=== PATIENT | female | born 1955 | race Caucasian/White ===

== ENCOUNTER 2017-02-17 08:26 | Day surgery (SDC) | payer BC ==
[2017-02-16 11:46] VITALS: BMI 28.1
[~2017-02-17 08:26] MED LIST: LACTATED RINGERS 1,000 ML IV SCH
[2017-02-17 08:38] VITALS: RESP 16; TEMP 97.6
[2017-02-17] MEDS ORDERED: LIDOCAINE 1% 20 ML VIAL (10MG/ML) FOR IV START INTRADERMA ONE (08:50)
[2017-02-17] MEDS ORDERED: PROPOFOL 10 MG/ML 20 ML VIAL IV ONE (09:20)
--- NOTE | 2017-02-17 10:00 | P.PCN ---
Date of Procedure: 02/17/17 Preoperative Diagnosis: Postoperative Diagnosis: Procedure(s) Performed: BRIEF HISTORY: Patient is a 61-year-old pleasant white female scheduled for an elective colonoscopy as a part of screening for colorectal neoplasia. PROCEDURE PERFORMED: Colonoscopy with snare polypectomy . PREOPERATIVE DIAGNOSIS: screening for colon cancer IV sedation per Anesthesia. PROCEDURE: After informed consent was obtained, the patient, was brought into the endoscopy unit. IV sedation was administered by Anesthesia under continuous monitoring. Digital rectal examination was normal. Initially the Olympus CF- 160 flexible video colonoscope was then inserted in the rectum, gradually advanced into the cecum without any difficulty. Careful examination was performed as the scope was gradually being withdrawn. Ileocecal valve and the appendiceal orifice were visualized and appeared normal. Prep was fair.Mucosa of the cecum, ascending colon, transverse colon, descending colon, sigmoid coappeared normal. In the rectum; there was a 1 cm polyp removed by snare polypectomy. The rectum appeared normal. Retroflexion was performed in the rectum and no lesions were seen. The patient tolerated the procedure well. IMPRESSION: 1 cm rectal sigmoid polyp serous was snare polypectomy Rest of the colon appeared normal RECOMMENDATIONS: Findings of this examination were discussed with the patient as well as her family. She was advised to follow with the biopsy results. If the biopsy shows a tubular adenoma she can have a repeat colonoscopy in 5 years. Implants: Indications for Procedure: Operative Findings: Description of Procedure:
[2017-02-17 10:05] VITALS: BP 126/76; PULSE 52
== END 2017-02-17 10:34 | disposition home or self-care (01) ==
LOC: ORWHC2ENDO 08:26
PROVIDERS: ATTEND Internal Medicine Gastroenterology
DX: Z12.11 Encounter for screening for malignant neoplasm of colon (principal); K62.1 Rectal polyp; Z79.899 Other long term (current) drug therapy
CPT/HCPCS: 88305; 45385; J2704

== ENCOUNTER → 2017-02-28 | Outpatient (CLI) | payer BC ==
--- NOTE | 2017-03-01 07:25 | MM ---
Reason for exam: additional evaluation requested from prior study. Last mammogram was performed 1 year and 6 months ago. History: Patient is postmenopausal and is nulliparous. Implants in both breasts, 1991. Took hormonal contraceptives for 5 years beginning at age 32. Took estrogen for 4 years beginning at age 53. Took progesterone for 4 years beginning at age 53. Physical Findings: Nurse did not find any significant physical abnormalities on exam. MG Diag Mamm Implants AWAIS w CAD Bilateral CC, MLO, and ID view(s) were taken. Prior study comparison: August 18, 2015, bilateral MG 3d screen mammo imp/cad. August 11, 2014, bilateral MG diagnostic mammo w CAD AWAIS. There are scattered fibroglandular densities. There is increasing extracapsular silicone on the right breast. These results were verbally communicated with the patient and result sheet given to the patient on 02/28/17. ASSESSMENT: Benign, BI-RAD 2 RECOMMENDATION: Routine screening mammogram of both breasts in 1 year. Extracapsular implant rupture right breast.
--- NOTE | 2017-03-01 10:29 | WWHP ---
DATE OF SERVICE: 02/28/2017 CHIEF COMPLAINT: Patient is here for her routine gynecologic exam and mammogram. HPI: This is a 61-year-old G1, P0-0-1-0 with a LMP of 1998. The patient continues to have some vulvar pruritus. She was treated with Kenalog cream, which did seem to help, but did not make the pruritus completely go away. Her prescription ran out several months ago and she again has been having moderate pruritus and, at times it can be severe. The patient denies any vaginal discharge. She was started on an antibiotic prescribed by a different doctor for the vulvar pruritus and this briefly seemed to help, but was not lasting. She also try Diflucan, which again briefly seemed to help but did not last. She is otherwise without gynecologic complaints. PAST MEDICAL HISTORY: Osteoporosis and she is status post 4 years use of Boniva. She denies any other health problems. MEDICATIONS: 1. Multivitamin daily. 2. Vitamin D 2000 units daily. 3. Calcium supplement 1 daily. ALLERGIES: No known drug allergies. PAST SURGICAL HISTORY: Facelift surgery in 2012, bilateral silicone breast implants in approximately 1991, colonoscopy 2006 and January 2017, arthroscopic right knee surgery in 2016. 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 She has no history of STDs. SOCIAL HISTORY: She denies tobacco and drug use. She has about 5 to 6 alcoholic drinks per month. 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 FAMILY HISTORY: Unchanged from the 2015 H&P. REVIEW OF SYSTEMS: She has lost about 14 pounds over the last 1 to 2 years ago with diet and exercise. She denies respiratory, cardiac, or GI problems. PHYSICAL EXAM: Blood pressure 123/80. Height 5 feet 5-1/2 inches. Weight 175 pounds. Temperature 97.6, pulse 59. This a well-developed, well-nourished white female who is alert and oriented x3 in no acute distress. HEENT is within normal limits. NECK: Supple without mass or thyromegaly. CHEST AND LUNGS: Clear to auscultation. HEART: Regular rate and rhythm. BREASTS: Without mass or discharge. Axillary exam is negative for adenopathy. BACK: Negative for CVA tenderness. ABDOMEN: Soft, nontender, without palpable masses. PELVIC EXAM: External genitalia reveals mild atrophy. There is minimal erythema in the periclitorial area and the crease between the labia minora and labia majora in the anterior aspect of the introitus. There is no significant pallor. There are no other focal lesions. Cervix and vagina appear normal. There is no unusual discharge. There is minimal atrophy noted. There is no evidence of prolapse. The uterus is midposition, nongravid size and nontender. There are no palpable adnexal masses or tenderness. Rectovaginal exam Almeida for mass or tenderness and is negative for occult blood. EXTREMITIES: Nontender. IMPRESSION: 1. A 61-year-old with chronic vulvar pruritus with mild inflammation at the anterior aspect of the introitus and periclitoral areas. 2. Differential diagnosis will include chronic inflammation as well as lichen sclerosus. 3. History of osteoporosis status post 4 years of Boniva treatment. PLAN: 1. Pap smear was deferred, since her last one was normal in 2 years. 2. Self-breast examination was discussed. 3. Diagnostic bilateral mammogram will be done today. 4. Kenalog 0.1% cream b.i.d. to the vulvar area, she will use this every day for the next 2 weeks and then p.r.n. She will also use a small amount of petroleum jelly once daily to be used as a protective layer. 5. If by next month she is not having significant improvement, she was instructed to make an appointment here for a vulvar biopsy. 6. We will plan on repeating bone density testing next year. 7. She will return in one year and p.r.n. MTDD
== END | disposition home or self-care (01) ==
LOC: WWCWWP 13:48
PROVIDERS: ATTEND Obstetrics & Gynecology
DX: R92.8 Other abnormal and inconclusive findings on diagnostic imaging of breast (principal)

== ENCOUNTER → 2019-01-01 | Outpatient (CLI) | payer BC ==
[2019-01-01 15:53] VITALS: BP 140/79; PULSE 61; RESP 18; TEMP 96.1; BMI 31.6
--- NOTE | 2019-01-01 17:21 | P.HPOB ---
History of Present Illness H&P Date: 01/01/19 Chief Complaint: The patient is here for her routine gynecologic exam. This is a 63-year-old with an LMP of 1998. The patient is without gynecologic complaints and denies any postmenopausal bleeding. Review of Systems The patient has gained 15 pounds over the last 2 years. She denies respiratory or cardiac problems. G.I.: occasional heartburn. Past Medical History Additional Past Medical History / Comment(s): Osteoporosis status post 4 years use of Boniva. PAST MEDICAL INTERN HISTORY: She has no history of STDs. History of Any Multi-Drug Resistant Organisms: None Reported Past Surgical History: Breast Surgery, Orthopedic Surgery Additional Past Surgical History / Comment(s): arthroscopic rt knee. Cosmetic facial surgery. Bilateral silicone breast implants 1991 and they were replaced in 2018. Colonoscopy 2017(2nd). 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 - Past Family History Mother Family Medical History: Hypertension, Myocardial Infarction ([place]) Father Family Medical History: Coronary Artery Disease (CAD) Additional Family Medical History / Comment(s): Aortic aneurysm. Sister(s) Additional Family Medical History / Comment(s): Dermatomyositis. Medications and Allergies Home Medications Medication Instructions Recorded Confirmed Type No Known Home Medications 01/01/19 01/01/19 History Allergies Allergy/AdvReac Type Severity Reaction Status Date / Time No Known Allergies Allergy Verified 01/01/19 15:38 Exam Vital Signs Temp Pulse Resp BP Pulse Ox 01/01/19 15:50 96.1 F L 61 18 140/79 100 Intake and Output 01/01/19 01/01/19 01/01/19 06:59 14:59 22:59 Other: Weight 86.183 kg Height 5'5", weight 190 pounds, BMI 31.6. This is a well-developed well-nourished white female who is alert and oriented times 3 in no acute distress. HEENT: Within normal limits. NECK: Supple without mass or thyromegaly. CHEST AND LUNGS: Clear to auscultation. HEART: Regular rate and rhythm. BREASTS: Are without mass or discharge. The breasts are consistent with bilateral silicone implants. AXILLARY EXAM: Negative for adenopathy. BACK: Negative for CVA tenderness. ABDOMEN: Soft, nontender, without palpable masses. PELVIC EXAM: There is a slightly irregular mole on the right side of the mons pubis that measures 9 x 9 mm. The mole is brown and slightly raised. The patient states this is grown recently. The external genitalia is otherwise unremarkable with mild atrophy. Cervix and vagina appear normal mild atrophy. There is no unusual discharge. There is no evidence of prolapse. The uterus is midposition, nongravid size and nontender. There are no palpable adnexal masses or tenderness. RECTAL EXAM: rectovaginal exam is negative for mass or tenderness and is negative for occult blood. EXTREMITIES: Nontender. IMPRESSION: 1. 63-year-old menopausal female with the right mons pubis skin lesion approximately 9 x 9 mm which is growing, per the patient, and slightly irregular. 2. Otherwise unremarkable gynecologic exam. 3. History of osteopenia or osteoporosis status post 4 years use of Boniva PLAN: 1. Pap smear was performed. 2. Self breast awareness was discussed with the patient. 3. Screening mammogram was recommended. She was told by her plastic surgeon to delay this after her breast implants. She will contact her plastic surgeon to see if it is okay to proceed with screening mammograms. The order slip was given to the patient for this. 4. Osteoporosis prevention was discussed. I have stressed the importance of adequate calcium, vitamin D and regular exercise. Recommended amounts of calcium and vitamin D were also discussed. I have recommended bone density screening since it is been several years since her last one. 5. I've recommended removal of the mons pubis skin lesion since it seems to be growing, according to the patient, and is somewhat irregular. She is instructed to make an appointment for its removal. We will plan on sending it for pathological examination. 6.She was also advised to return in one year for her annual well woman exam.
--- NOTE | 2019-01-08 14:05 | P.PN ---
Progress Note - Text Progress Note Date: 01/08/19 OUTPATIENT FOLLOW-UP NOTE TEST(S)/RESULTS: Pap smear done on 01/01/2019 was negative. METHOD OF NOTIFICATION: the patient was notified by phone. PATIENT COMMENTS: the patient states you will be making an appointment for mammogram and for removal of the mons pubis skin lesion in the near future. DIAGNOSIS: negative Pap smear DISCUSSION: PLAN: she will return in one year for her annual woman exam and in the near future for the removal of the growing mole on the mons pubis.
== END | disposition home or self-care (01) ==
LOC: WWCWWP 15:37
PROVIDERS: ATTEND Obstetrics & Gynecology
DX: Z53.9 Procedure and treatment not carried out, unspecified reason (principal)

== ENCOUNTER → 2019-03-26 | Outpatient (CLI) | payer BC ==
[2019-03-26 08:03] VITALS: BP 129/75; PULSE 69; RESP 16; TEMP 98.5; BMI 32.1
--- NOTE | 2019-03-26 08:48 | P.PCN ---
Date of Procedure: 03/26/19 Preoperative Diagnosis: Suspicious skin lesion, Right mons pubis Postoperative Diagnosis: Suspicious skin lesion, Right mons pubis Procedure(s) Performed: Excision of right mons pubis skin lesion Anesthesia: local Surgeon: Boogie Elizabeth Estimated Blood Loss (ml): 2 Pathology: other (Right mons pubis skin lesion) Condition: stable Disposition: same day Indications for Procedure: This was a 64-year-old female who has had a raised pigmented skin lesion for a number of years. She states that it has grown over the past couple of years. Upon inspection it has a slightly irregular border that makes it somewhat suspicious in appearance. Operative Findings: On the right mons pubis, there is a raised pigmented lesion with a slightly irregular border measuring approximately 11 x 10 mm. Description of Procedure: The patient was placed in the lithotomy position allowing adequate exposure of the lesion. The area was prepped with Betadine. 2 mL of 1% lidocaine was used for local anesthesia. Following determination of adequate anesthesia a 15 blade was used to excise the lesion. This was a full thickness excision. A silver nitrate stick was used to obtain hemostasis in the subcutaneous tissue. Three interrupted sutures of 3-0 vicryl was used to close the excision site. The site was hemostatic. Antibiotic ointment was applied and dressing was then applied. The patient tolerated the procedure well. The specimen was sent for pathological examination. The estimate of blood loss was 2 mL. The patient was instructed to apply Neosporin ointment twice daily until healed. She was instructed to call if she has any problems including bleeding that is not stopped with pressure, signs of infection such as increasing redness, or unusual pain. She is to return in 2 weeks for suture removal, or allow them to dissolve under the surface.
--- NOTE | 2019-03-26 10:43 | BD ---
EXAMINATION TYPE: Axial Bone Density DATE OF EXAM: 03/26/2019 COMPARISON: NONE CLINICAL HISTORY: post menopausal Height: 5'5 Weight: 191 FRAX RISK QUESTIONS: Secondary Osteoporosis: RISK FACTORS HISTORY OF: Family History of Osteoporosis: y Postmenopausal woman: y MEDICATIONS: Additional Medications: Additional History: EXAM MEASUREMENTS: Bone mineral densitometry was performed using the [employer] System. Bone mineral density as measured about the Lumbar spine is: ----- L1-L4(G/cm2): 0.944 T Score Values are as follows: ----- L2: -3.0 ----- L3: -2.0 ----- L4: -0.9 ----- L1-L4: -2.0 Bone mineral density about the R hip (g/cm2): 0.855 Bone mineral density about the L hip (g/cm2): 0.821 T Score values are as follows: -----R Neck: -1.3 -----L Neck: -1.6 -----R Total: -0.7 -----L Total: -0.5 IMPRESSION: Osteopenia (T Score between -2.5 and -1). There is slightly increased risk of fracture and the patient may be considered for treatment. Re-Screen 2-5 years. NOTE: T-SCORE=SD OF THE YOUNG ADULT MEAN.
--- NOTE | 2019-03-27 10:08 | MM ---
Reason for exam: screening (asymptomatic). Last mammogram was performed 2 years and 1 month ago. History: Patient is postmenopausal and is nulliparous. Implants in both breasts, 2018. Implants in both breasts, 1991. Took hormonal contraceptives for 5 years beginning at age 32. Took estrogen for 4 years beginning at age 53. Took progesterone for 4 years beginning at age 53. Physical Findings: A clinical breast exam by your physician is recommended on an annual basis and results should be correlated with mammographic findings. MG 3D Screen Mammo Imp/Cad Bilateral CC, MLO, and ID view(s) were taken. Prior study comparison: February 28, 2017, bilateral MG diag mamm implants AWAIS w CAD. August 18, 2015, bilateral MG 3d screen mammo imp/cad. The breast tissue is heterogeneously dense. This may lower the sensitivity of mammography. There is no discrete abnormality. Stable implants. No significant changes when compared with prior studies. ASSESSMENT: Benign, BI-RAD 2 RECOMMENDATION: Routine screening mammogram of both breasts in 1 year.
== END ==
LOC: WWCWWP 07:44
PROVIDERS: ATTEND Obstetrics & Gynecology
DX: Z12.31 Encounter for screening mammogram for malignant neoplasm of breast (principal); M85.80 Other specified disorders of bone density and structure, unspecified site; Z78.0 Asymptomatic menopausal state; Z98.82 Breast implant status
CPT/HCPCS: 77063; 77067; 77080; 88305

== ENCOUNTER 2019-10-11 11:31 | Day surgery (SDC) | payer BC ==
[2019-10-10 13:17] VITALS: BMI 30.9
[~2019-10-11 11:31] MED LIST changes: +LIDOCAINE 1% 20 ML VIAL (10MG/ML) FOR IV START INTRADERMA PRN
[2019-10-11 12:04] VITALS: TEMP 98.2
[2019-10-11] MEDS ORDERED: PROPOFOL 10 MG/ML 20 ML VIAL IV ONE (13:27)
[2019-10-11] MEDS ORDERED: LIDOCAINE 1% INJ 10MG/ML (20 ML MDV) ONE (13:27)
--- NOTE | 2019-10-11 13:37 | P.PCN ---
Date of Procedure: 10/11/19 Procedure(s) Performed: BRIEF HISTORY: Patient is a 64-year-old, pleasant, , white female, scheduled for an upper endoscopy as a part of evaluation of long-standing history of GERD. Recently she was started on Pepcid 20 mg twice daily and symptoms are gradually improving.. PROCEDURE PERFORMED: Esophagogastroduodenoscopy with biopsy. PREOPERATIVE DIAGNOSIS: GERD. IV sedation per anesthesia. PROCEDURE: After informed consent was obtained, the patient was brought into the endoscopy unit. IV sedation was administered by Anesthesia under continuous monitoring. Initially the Olympus GIF-140 video endoscope was inserted into the mouth. Esophagus intubated without any difficulty. It was gradually advanced into the stomach and duodenum and carefully examined. The bulb and the second part of the duodenum appeared normal. The scope at this time was withdrawn to the stomach, adequately insufflated with air, and upon careful examination, mucosa of the antrum, had mild gastritis and biopsies were done from this area. The body, cardia and the fundus appeared normal. The scope was then withdrawn i nto the esophagus. The GE junction was located at 39 cm from the incisors. There were 2 superficial erosions at the GE junction consistent with LA grade B reflux esophagitis. The rest of the esophagus appeared normal. The patient tolerated the procedure well. IMPRESSION: 1. Minimal antral gastritis. 2. 2 superficial erosions at the GE junction consistent with LA grade B reflux esophagitis. RECOMMENDATIONS: The findings of this examination were discussed with the patient as well as a family. She was advised to continue with Pepcid 20 mg twice daily and follow antireflux measures. She was also advised to follow with the biopsy results.
[2019-10-11 13:44] VITALS: RESP 16
[2019-10-11 13:59] VITALS: BP 137/90; PULSE 62
== END 2019-10-11 14:12 | disposition home or self-care (01) ==
LOC: ORWHC2ENDO 11:31 → MERGE 15:00
PROVIDERS: ATTEND Internal Medicine Gastroenterology
DX: K29.50 Unspecified chronic gastritis without bleeding (principal); K22.10 Ulcer of esophagus without bleeding; K21.0 Gastro-esophageal reflux disease with esophagitis; E78.5 Hyperlipidemia, unspecified; M81.0 Age-related osteoporosis without current pathological fracture; Z79.899 Other long term (current) drug therapy; Z98.890 Other specified postprocedural states
CPT/HCPCS: 88305; 43239; J2001; J2704

== ENCOUNTER → 2020-07-21 | Outpatient (CLI) | payer BC ==
[2020-07-21 12:53] VITALS: BP 134/85; PULSE 66; RESP 18; TEMP 98.2
--- NOTE | 2020-07-21 13:27 | P.HPOB ---
History of Present Illness H&P Date: 07/21/20 Chief Complaint: The patient is here for her routine gynecologic exam and ma mmogram. This is a 65-year-old with an LMP of 1998. The patient is without gynecologic complaints. Review of Systems The patient's weight has been stable over the last year. She denies respiratory, cardiac, or G.I. problems. Past Medical History Past Medical History: No Reported History, GERD/Reflux, Hyperlipidemia Additional Past Medical History / Comment(s): Osteoporosis status post 4 years use of Boniva DC'd approx 2015. PAST VP PUBLIC RELATIONS HISTORY: She has no history of STDs. History of Any Multi-Drug Resistant Organisms: None Reported Past Surgical History: Breast Surgery, Orthopedic Surgery Additional Past Surgical History / Comment(s): arthroscopic rt knee. Cosmetic facial surgery. Bilateral silicone breast implants 1991 and they were replaced in 2017. Colonoscopy 2016(next after 5yr).Upper endoscopy(EGD) 2019. rt achilles tendon repair Past Anesthesia/Blood Transfusion Reactions: No Reported Reaction Past Psychological History: No Psychological Hx Reported Smoking Status: Never smoker Past Alcohol Use History: Occasional Past Drug Use History: None Reported - Past Family History Mother Family Medical History: Hypertension, Myocardial Infarction ([place]) Father Family Medical History: Coronary Artery Disease (CAD) Additional Family Medical History / Comment(s): Aortic aneurysm. Sister(s) Family Medical History: AFIB Additional Family Medical History / Comment(s): Dermatomyositis. Medications and Allergies Home Medications Medication Instructions Recorded Confirmed Type Cholecalciferol [Vitamin D3 (25 2,000 unit PO DAILY 10/10/19 07/21/20 History Mcg = 1000 Iu)] Lipitor (Unkn.Dose) 80 mg PO DAILY 10/10/19 07/21/20 History Omeprazole 20 mg PO DAILY 07/21/20 07/21/20 History Zinc 50 mg PO DAILY 07/21/20 07/21/20 History Allergies Allergy/AdvReac Type Severity Reaction Status Date / Time No Known Allergies Allergy Verified 07/21/20 12:47 Exam Vital Signs Temp Pulse Resp BP Pulse Ox 07/21/20 12:49 98.2 F 66 18 134/85 97 Intake and Output 07/20/20 07/21/20 07/21/20 22:59 06:59 14:59 Other: Weight 87.09 kg Height 5 feet 4 inches, weight 192 pounds, BMI 33.0. This is a well-developed well-nourished white female who is alert and oriented times 3 in no acute distress. HEENT: Within normal limits. NECK: Supple without mass or thyromegaly. CHEST AND LUNGS: Clear to auscultation. HEART: Regular rate and rhythm. BREASTS: Are without mass or discharge. Exam is consistent with bilateral implants. AXILLARY EXAM: Negative for adenopathy. BACK: Negative for CVA tenderness. ABDOMEN: Soft, nontender, without palpable masses. PELVIC EXAM: Normal external genitalia with mild atrophy. The mons pubis is within normal limits and the site of the removal of seborrheic keratosis on the right side is well-healed. Cervix and vagina appear normal with mild atrophy. There is no unusual discharge. There is no evidence of prolapse. The uterus is midposition, nongravid size and nontender. There are no palpable adnexal masses or tenderness. RECTAL EXAM: Rectovaginal exam is negative for mass or tenderness and is negative for occult blood. EXTREMITIES: Nontender. IMPRESSION: 1. 65-year-old menopausal female with normal gynecologic exam. 2. History of osteoporosis status post 4 years use of Boniva ending in approximately 2016. PLAN: 1. Pap smear was deferred since she had a normal one on 01/01/2019. 2. Self breast awareness was discussed with the patient. 3. Screening mammogram will be done today. 4. Osteoporosis management was discussed. I have stressed the importance of adequate calcium, vitamin D and regular exercise. Recommended amounts of calcium and vitamin D were also discussed. We will plan on repeating bone density testing in 1-2 years. 5. She was advised to return in one year for her annual well woman exam.
--- NOTE | 2020-07-23 12:09 | MM ---
Reason for exam: screening (asymptomatic). Last mammogram was performed 1 year and 4 months ago. History: Patient is postmenopausal and is nulliparous. Implants in both breasts, 2018. Implants in both breasts, 1991. Took hormonal contraceptives for 5 years beginning at age 32. Took estrogen for 4 years beginning at age 53. Took progesterone for 4 years beginning at age 53. Physical Findings: A clinical breast exam by your physician is recommended on an annual basis and results should be correlated with mammographic findings. MG 3D Screen Mammo Imp/Cad Bilateral CC, MLO, and ID view(s) were taken. Prior study comparison: March 26, 2019, bilateral MG 3d screen mammo imp/cad. February 28, 2017, bilateral MG diag mamm implants AWAIS w CAD. There are scattered fibroglandular densities. Focal asymmetry left upper outer quadrant. Bilateral breast prothesis. ASSESSMENT: Benign, BI-RAD 2 RECOMMENDATION: Routine screening mammogram of both breasts in 1 year.
== END | disposition home or self-care (01) ==
LOC: WWCWWP 12:20
PROVIDERS: ATTEND Obstetrics & Gynecology
DX: N64.4 Mastodynia (principal)
CPT/HCPCS: 77063; 77067

== ENCOUNTER → 2021-11-02 | Outpatient (CLI) | payer BC ==
[2021-11-02 10:44] VITALS: BP 137/92; PULSE 71; RESP 18; TEMP 98.7
--- NOTE | 2021-11-02 11:43 | P.HPOB ---
History of Present Illness H&P Date: 11/02/21 Chief Complaint: The patient is here for her routine gynecologic exam and ma mmogram. This is a 66-year-old with an LMP of 1998. The patient is without gynecologic complaints and denies any postmenopausal bleeding. The patient started HRT subcutaneous pellets through Dr. Ohara last fall. She was having some hot flashes that felt like someone turned the temperature up in the room. She has had improvement with this. She has noticed a slight increase in sex drive, but feels that it is more difficult to reach orgasm with the HRT. She has not needed the Kenalog cream for vulvar pruritus, but just recently has noticed a small amount of vulvar pruritus. Review of Systems The patient has lost 5 pounds over the last year. She has been trying to lose weight with diet and exercise. She denies respiratory, cardiac, or G.I. prob lems. She has had some gastric reflux which has been controlled with omeprazole. Past Medical History Past Medical History: GERD/Reflux, Hyperlipidemia Additional Past Medical History / Comment(s): Osteoporosis status post 4 years use of Boniva DC'd approx 2015. 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 History of Any Multi-Drug Resistant Organisms: None Reported Past Surgical History: Breast Surgery, Orthopedic Surgery Additional Past Surgical History / Comment(s): arthroscopic rt knee. Cosmetic facial surgery. Bilateral silicone breast implants 1991 and they were replaced in 2018. Colonoscopy 2016(next after 5yr).Upper endoscopy(EGD) 2019. rt achilles tendon repair Past Anesthesia/Blood Transfusion Reactions: No Reported Reaction Past Psychological History: No Psychological Hx Reported Smoking Status: Never smoker Past Alcohol Use History: Occasional (4-5 per month) Past Drug Use History: None Reported Additional History: She has been since 1996. She works at [employer] and is currently working remotely. - Past Family History Mother Family Medical History: Hypertension, Myocardial Infarction ([place]) Father Family Medical History: Coronary Artery Disease (CAD) Additional Family Medical History / Comment(s): Aortic aneurysm. Sister(s) Family Medical History: AFIB Additional Family Medical History / Comment(s): Dermatomyositis. Medications and Allergies Home Medications Medication Instructions Recorded Confirmed Type Cholecalciferol [Vitamin D3 (25 2,000 unit PO DAILY 10/10/19 11/02/21 History Mcg = 1000 Iu)] Lipitor (Unkn.Dose) 80 mg PO DAILY 10/10/19 11/02/21 History Omeprazole 20 mg PO DAILY 07/21/20 11/02/21 History Zinc 50 mg PO DAILY 07/21/20 11/02/21 History Estrodim 1 tab PO DAILY 11/02/21 11/02/21 History Progesterone, Micronized 100 mg PO DAILY 11/02/21 11/02/21 History [Progesterone] Allergies Allergy/AdvReac Type Severity Reaction Status Date / Time No Known Allergies Allergy Verified 11/02/21 10:22 Exam Vital Signs Temp Pulse Resp BP Pulse Ox 11/02/21 10:25 98.7 F 71 18 137/92 96 Intake and Output 11/01/21 11/02/21 11/02/21 22:59 06:59 14:59 Other: Weight 84.822 kg Height 5 feet 3-1/2 inches, weight 187 pounds, BMI 32.6. This is a well-developed well-nourished white female who is alert and oriented times 3 in no acute distress. HEENT: Within normal limits. NECK: Supple without mass or thyromegaly. CHEST AND LUNGS: Clear to auscultation. HEART: Regular rate and rhythm. BREASTS: Are without mass or discharge. AXILLARY EXAM: Negative for adenopathy. BACK: Negative for CVA tenderness. ABDOMEN: Soft, nontender, without palpable masses. PELVIC EXAM: Normal external genitalia with mild atrophy. There is no erythema or focal lesions. Cervix and vagina appear normal with mild atrophy. There is no unusual discharge. There is no evidence of prolapse. The uterus is midposition, nongravid size and nontender. There are no palpable adnexal masses or tenderness. RECTAL EXAM: Rectovaginal exam is negative for mass or tenderness and is negative for occult blood. EXTREMITIES: Nontender. IMPRESSION: 1. 66-year-old menopausal female with normal gynecologic exam. 2. Occasional mild vulvar pruritus with no significant physical findings at this time. 3. History of osteoporosis status post 4 years use of Boniva in the past. PLAN: 1. Pap smear cotest was performed. If this is negative, we will plan on discontinuing Pap smears. 2. Self breast awareness was discussed with the patient. We have also discussed symptoms associated with inflammatory breast cancer. 3. Screening mammogram was done today. 4. Osteoporosis management was discussed. I have stressed the importance of adequate calcium, vitamin D and regular exercise. Recommended amounts of calcium and vitamin D were also discussed. I recommended repeating bone density testing since her last one was about 2-1/2 years ago. The order slip was given to the patient for this. 5. Kenalog 0.1% cream twice a day when necessary for vulvar pruritus. We have discussed importance of not over washing and importance of not scratching. The electronic prescription will be sent to [facility] pharmacy in [place]. 6. She has completed her Covid vaccination series and did have a mild case of Covid 1 month ago. 7. I have recommended screening colonoscopy since she was told to have another one after 5 years following her 2017 colonoscopy. She will speak with her PCP about this. 8. She was advised to return in one year for her annual well woman exam.
--- NOTE | 2021-11-03 09:08 | MM ---
Reason for exam: screening (asymptomatic). Last mammogram was performed 1 year and 3 months ago. History: Patient is postmenopausal and is nulliparous. Retro-pectoral silicone gel implants in both breasts, 2018. Implants in both breasts, 1991. Took hormonal contraceptives for 5 years beginning at age 32. Took estrogen for 4 years beginning at age 53. Took progesterone for 4 years beginning at age 53. Physical Findings: A clinical breast exam by your physician is recommended on an annual basis and results should be correlated with mammographic findings. MG 3D Screen Mammo Imp/Cad Bilateral CC, MLO, and ID view(s) were taken. Prior study comparison: July 21, 2020, bilateral MG 3d screen mammo imp/cad. March 26, 2019, bilateral MG 3d screen mammo imp/cad. The breast tissue is heterogeneously dense. This may lower the sensitivity of mammography. Bilateral implants are intact. No significant changes when compared with prior studies. ASSESSMENT: Negative, BI-RAD 1 RECOMMENDATION: Routine screening mammogram of both breasts in 1 year.
== END ==
LOC: WWCWWP 09:41
PROVIDERS: ATTEND Obstetrics & Gynecology
DX: Z12.31 Encounter for screening mammogram for malignant neoplasm of breast (principal); Z01.419 Encounter for gynecological examination (general) (routine) without abnormal findings; L29.2 Pruritus vulvae; Z87.39 Personal history of other diseases of the musculoskeletal system and connective tissue; E78.5 Hyperlipidemia, unspecified; K21.9 Gastro-esophageal reflux disease without esophagitis; Z79.899 Other long term (current) drug therapy; Z79.890 Hormone replacement therapy
CPT/HCPCS: 77063; 77067

== ENCOUNTER 2022-08-16 02:00 | Emergency (ER) | payer BC, MEDICARE ==
[2022-08-16 02:05] VITALS: TEMP 98
[2022-08-16] MEDS ORDERED: LIDOCAINE 1%/EPI 1:200,000 MPF 10 ML VIAL SQ STA (02:30)
--- NOTE | 2022-08-16 02:47 | ED ---
Head Injury HPI - General Chief complaint: Head Injury Stated complaint: Fall, head injury Time Seen by Provider: 08/16/22 02:25 Source: patient, RN notes reviewed Mode of arrival: ambulatory Limitations: no limitations - History of Present Illness Initial comments: This is a pleasant 67-year-old female presents immersed prior after tripping over her dog and striking her face on her dresser. Patient believes she hit the top of the dresser causing a laceration to her glabella area. Patient also struck the anterior aspect of her right knee. Patient has been up and walking since this happened. No headache, no fever or chills, no changes in vision or hearing, no sore throat or difficulty with speech, no neck pain, no chest pain or shortness of breath, no abdominal pain, no nausea or vomiting, no changes in urination or bowel movements, no numbness or tingling, no extremity pain, no skin rashes or lesions. Past medical, surgical, social, and family history reviewed. MD Complaint: head injury, head pain, fall Onset/Timin -: hour(s) Mechanism of Injury: mechanical fall Location: frontal Loss of Consciousness: no Previous Trauma to this Area: No Place: home Radiation: none Severity: mild Severity scale (1-10): 4 Quality: dull Consistency: constant Provoking factors: none known Other Injuries: other (R knee) Associated Symptoms: denies other symptoms - Related Data Home Medications Medication Instructions Recorded Confirmed Cholecalciferol [Vitamin D3 (25 2,000 unit PO DAILY 10/10/19 02/08/22 Mcg = 1000 Iu)] Omeprazole 20 mg PO DAILY 07/21/20 02/08/22 Zinc 50 mg PO DAILY 07/21/20 02/08/22 Progesterone, Micronized 200 mg PO HS 11/02/21 02/08/22 [Progesterone] Previous Rx's Medication Instructions Recorded Amoxic-Pot Clav 875-125Mg 1 tab PO Q12HR 1 Days #2 tab 08/16/22 [Augmentin 875-125] Docusate [Colace] 100 mg PO DAILY #30 capsule 08/16/22 HYDROcodone/APAP 5-325MG [[place] 1 tab PO Q6HR PRN 3 Days #12 tab 08/16/22 5-325] Allergies/Adverse reactions: Allergies Allergy/AdvReac Type Severity Reaction Status Date / Time No Known Allergies Allergy Verified 08/16/22 02:01 Review of Systems ROS Statement: Those systems with pertinent positive or pertinent negative responses have been documented in the HPI. ROS Other: All systems not noted in ROS Statement are negative. Past Medical History Past Medical History: GERD/Reflux, Hyperlipidemia, Osteoarthritis (OA), Pneumonia Additional Past Medical History / Comment(s): hx covid 2020. History of Any Multi-Drug Resistant Organisms: None Reported Past Surgical History: Breast Surgery, Orthopedic Surgery Additional Past Surgical History / Comment(s): arthroscopic rt knee. Cosmetic facial surgery. Bilateral silicone breast implants 1991 & replaced in 2017. , Colonoscopy ., EGD 2019., rt achilles tendon repair Past Anesthesia/Blood Transfusion Reactions: No Reported Reaction Past Psychological History: No Psychological Hx Reported Smoking Status: Never smoker Past Alcohol Use History: Occasional Past Drug Use History: None Reported - Past Family History Mother Family Medical History: Hypertension, Myocardial Infarction ([place]) Father Family Medical History: Coronary Artery Disease (CAD) Additional Family Medical History / Comment(s): Aortic aneurysm. Sister(s) Family Medical History: AFIB Additional Family Medical History / Comment(s): Dermatomyositis. General Exam - General Exam Comments Initial Comments: Patient does not appear to be ill or toxic. Cranial nerves II through XII are intact. Limitations: no limitations General appearance: alert, in no apparent distress Head exam: Present: other (Laceration to the glabella area. Normocephalic/atraumatic otherwise.) Expanded Head exam: Present: laceration. Absent: abrasion, contusion, hematoma, raccoon eyes, gomez's sign, general tenderness, tenderness of temporal artery, CSF rhinorrhea, CSF otorrhea 1 - laceration, irregular Eye exam: Present: normal appearance, PERRL, EOMI. Absent: scleral icterus, conjunctival injection, periorbital swelling ENT exam: Present: normal exam, normal oropharynx, mucous membranes moist, nor mal external ear exam. Absent: mucous membranes dry Neck exam: Present: normal inspection, full ROM. Absent: tenderness, meningismus, lymphadenopathy Respiratory exam: Present: normal lung sounds bilaterally, chest wall tenderness. Absent: respiratory distress, wheezes, rales, rhonchi, stridor, accessory muscle use, decreased breath sounds, prolonged expiratory Cardiovascular Exam: Present: regular rate, normal rhythm, normal heart sounds. Absent: systolic murmur, diastolic murmur, rubs, gallop, clicks GI/Abdominal exam: Present: soft, normal bowel sounds. Absent: distended, tenderness, guarding, rebound, rigid Extremities exam: Present: normal inspection, full ROM, normal capillary refill. Absent: tenderness, pedal edema, joint swelling, calf tenderness Right Hip exam: Present: normal inspection, full ROM. Absent: tenderness Upper Leg exam: Present: normal inspection. Absent: tenderness, swelling Knee exam: Present: tenderness, swelling. Absent: full ROM, abrasion, lacer ation, ecchymosis, deformity, crepitus, dislocation, erythema, effusion, pain w/ pronation/supination, posterior draw sign, pain/laxity with valgus, pain/laxity with varus, full knee extension Lower Leg exam: Present: normal inspection. Absent: tenderness, swelling Ankle exam: Present: normal inspection, full ROM. Absent: tenderness Foot/Toe exam: Present: normal inspection, full ROM. Absent: tenderness Neurovascular tendon exam: Present: no vascular compromise. Absent: pulse deficit, abnormal cap refill, motor deficit, sensory deficit, tendon deficit, extremity cold to touch, pallor Gait: antalgic Back exam: Present: normal inspection Neurological exam: Present: alert, oriented X3, CN II-XII intact Psychiatric exam: Present: normal affect, normal mood Skin exam: Present: warm, dry, intact, normal color. Absent: rash Course Vital Signs 08/16/22 02:01 Temperature 98 F Pulse Rate 115 H Respiratory 16 Rate Blood Pressure 151/86 O2 Sat by Pulse 98 Oximetry Procedures - Laceration Laceration #1 Consent Obtained: verbal consent Indication: laceration Site: face (Glabella area) Size (cm): 5 Description: irregular Depth: involves muscle layer Anesthetic Used: lidocaine 2% Anesthesia Technique: local infiltration Amount (mls): 3 Pre-repair: wound explored, irrigated extensively Type of Sutures: nylon (10), vicryl (3) Size of Sutures: 6-0 Number of Sutures: 13 Patient Tolerated Procedure: well, no complications Medical Decision Making - Radiology Data Radiology results: report reviewed, image reviewed I did interpret the CT of the brain, cervical spine, facial bones. Patient does have a nondisplaced right nasal bone fracture. Concur with radiology interpretation. I interpretation of the right knee films reveal soft tissue changes. Arthritic changes, no fracture, no dislocation. Radiology. Patient was counseled extensively about wound care. Counseled on head injury instructions. Return or Follow Parameters. Mode on prophylactic antibiotics given the nasal bone fracture and dental the wound. Augmentin 875 mg twice a day. Patient given follow-up with your nose and throat Patient was told to return to the ER for any signs or symptoms worsen. Told to return immediately if any other problems arise. All questions answered. Treatment plan discussed. Patient in agreement Every effort has been made to ensure accuracy of this dictation. However, due to the limitations of electronic medical records and dictation devices, errors in charting still occur. The case was discussed in detail with ED attending physician. Presentation, findings, treatment plan discussed in detail. Supervising physicians Dr. Clayton Disposition Clinical Impression: Closed head injury, Nasal bone fracture, Contusion of right knee, Facial laceration Disposition: HOME SELF-CARE Condition: Good Instructions (If sedation given, give patient instructions): Nasal Fracture (ED), Laceration (ED), Head Injury (ED), Contusion in Adults (ED) Additional Instructions: Suture removal in 5 days. Wash the wound daily with warm soap and water. Cover with a thin layer of antibiotic ointment such as Neosporin or triple antibiotic ointment. Take the antibiotics as directed--amoxicillin/clavulanic acid 875 mg twice daily. Do not drive vehicles or operate machines while taking the acetaminophen/hydrocodone. Follow-up with the ear nose and throat doctor as discussed. Return to the ER immediately if any symptoms worsen, new symptoms arise, or any other problems develop. Prescriptions: Amoxic-Pot Clav 875-125Mg [Augmentin 875-125] 1 tab PO Q12HR 1 Days #2 tab Docusate [Colace] 100 mg PO DAILY #30 capsule HYDROcodone/APAP 5-325MG [[place] 5-325] 1 tab PO Q6HR PRN 3 Days #12 tab PRN Reason: Pain Is patient prescribed a controlled substance at d/c from ED?: No Referrals: Obermyer,Fran, MD [STAFF PHYSICIAN] - 1-2 days Time of Disposition: 04:01
--- NOTE | 2022-08-16 03:45 | XR ---
EXAMINATION TYPE: XR knee complete RT DATE OF EXAM: 08/16/2022 COMPARISON: NONE HISTORY: Fall. Pain TECHNIQUE: 3 views FINDINGS: There is some spurring of the femoral and tibial condyles. There is no fracture nor disloca tion. No significant joint space narrowing. IMPRESSION: Mild osteoarthritis. No fracture seen.
--- NOTE | 2022-08-16 03:47 | CT ---
EXAMINATION TYPE: CT brain isabelleine wo con DATE OF EXAM: 08/16/2022 COMPARISON: None HISTORY: trip & fall into night stand, lac to glabella area CT DLP: 574.5 mGycm Automated exposure control for dose reduction was used. Images obtained of the brain and cervical spine with no contrast. Ventricles have fairly normal size. There is no mass effect or midline shift. No sign of intracranial hemorrhage. Calvarium is intact. No evidence of cerebral edema. There is normal aeration of the mast oid sinuses. The cervical vertebra have normal alignment. No compression fracture. Posterior elements are intact. Facet joints are intact. There is mild hypertrophic cervical facet arthropathy. Prevertebral soft tis sues are intact. No significant cervical disc space narrowing. IMPRESSION: Minor degenerative changes in the cervical spine. No fracture. Negative CT scan of the brain. No evidence of traumatic injury.
--- NOTE | 2022-08-16 03:51 | CT ---
EXAMINATION TYPE: CT facial bones wo con DATE OF EXAM: 08/16/2022 COMPARISON: None HISTORY: trip & fall into night stand, lac to glabella area CT DLP: 574.5 mGycm Automated exposure control for dose reduction was used. Images obtained from the bottom of the mandible to the top of the frontal sinuses with no contrast. The mandibular ring is intact. Temporomandibular joints are intact. Zygomatic arches appear normal. There is normal aeration of the mastoid sinuses. Orbital margins are intact. No evidence of retro-orbital mass. There is small step deformity of the nasal bone on the rig ht side consistent with a fracture. There is no evidence of orbital blowout fracture. The maxillary spine is intact. Maxilla is intact. There is fairly normal aeration of the paranasal sinuses. There i s normal aeration of the temporal bones. IMPRESSION: There is evidence for a fracture of the right side of the nasal bone without significant displacement . Age of this fracture is not clear. No evidence of any significant soft tissue swelling.
[2022-08-16] MEDS ORDERED: CEPHALEXIN 500MG STARTER PACK 4 CAP BTL PO STA (03:56)
[2022-08-16] MEDS ORDERED: ceFAZolin 1,000 MG VIAL (IM USE) IM STA (03:56)
[2022-08-16] MEDS ORDERED: ACET/COD 300 MG/30 MG STARTER PACK 6 TAB BTL PO STA (03:57)
[2022-08-16] MEDS ORDERED: BACITRACIN OINT 1 EACH PACKET TOPICAL ONE (03:59)
[2022-08-16] MEDS ORDERED: AMOXIC-POT CLAV 875-125MG 1 EACH TAB PO STA (04:14)
[2022-08-16 04:38] VITALS: BP 133/77; PULSE 71; RESP 15
== END 2022-08-16 04:38 | disposition home or self-care (01) ==
LOC: EC 02:00
DX: S02.2XXA Fracture of nasal bones, initial encounter for closed fracture (principal); S80.01XA Contusion of right knee, initial encounter; S01.81XA Laceration without foreign body of other part of head, initial encounter; S09.90XA Unspecified injury of head, initial encounter; K21.9 Gastro-esophageal reflux disease without esophagitis; E78.5 Hyperlipidemia, unspecified; M19.90 Unspecified osteoarthritis, unspecified site; Z79.83 Long term (current) use of bisphosphonates; Z79.899 Other long term (current) drug therapy; W22.8XXA Striking against or struck by other objects, initial encounter
CPT/HCPCS: 12013; 70450; 70486; 72125; 99284

== ENCOUNTER 2022-12-15 06:26 | Emergency (ER) | payer BC, MEDICARE ==
[2022-12-15 06:42] VITALS: RESP 18; TEMP 98.3
[2022-12-15 07:47] LABS: Basophils # (A) 0.1 k/uL (0-0.2); Basophils % (A) 3 %; Eosinophils # (A) 0.2 k/uL (0-0.7); Eosinophils % (A) 4 %; HCT 43.9 % (34.0-46.0); HGB 15.2 gm/dL (11.4-16.0); Lymphocytes # (A) 1.3 k/uL (1.0-4.8); Lymphocytes % (A) 30 %; MCH 31.4 pg (25.0-35.0); MCHC 34.5 g/dL (31.0-37.0); MCV 90.8 fL (80.0-100.0); Monocytes # (A) 0.4 k/uL (0-1.0); Monocytes % (A) 9 %; Neutrophils # (A) 2.2 k/uL (1.3-7.7); Neutrophils % (A) 51 %; Platelet Count 181 k/uL (150-450); RBC 4.84 m/uL (3.80-5.40); RDW 13.3 % (11.5-15.5); WBC 4.3 k/uL (3.8-10.6)
[2022-12-15 07:59] LABS: ALT 31 U/L (4-34); AST 31 U/L (14-36); African American GFR (CKD) >90 (>60 ml/min/1.73 sqM); Albumin 4.7 g/dL (3.5-5.0); Alkaline Phosphatase 81 U/L (38-126); Anion Gap 8 mmol/L; Blood Urea Nitrogen 23 mg/dL (7-17); Calcium 9.7 mg/dL (8.4-10.2); Carbon Dioxide 27 mmol/L (22-30); Chloride 105 mmol/L (98-107); Glucose 82 mg/dL (74-99); INR 0.9 (<1.2); Magnesium 2.1 mg/dL (1.6-2.3); Non-African American GFR(CKD) 86 (>60 ml/min/1.73 sqM); Partial Thromboplastin Time 24.4 sec (22.0-30.0); Prothrombin Time 9.8 sec (9.0-12.0); Sodium 140 mmol/L (137-145); Total Bilirubin 0.7 mg/dL (0.2-1.3); Total Protein 7.9 g/dL (6.3-8.2)
[2022-12-15 08:01] LABS: Potassium 4.6 mmol/L (3.5-5.1)
--- NOTE | 2022-12-15 08:35 | CT ---
EXAMINATION TYPE: CT brain wo con CT DLP: 1089 mGycm, Automated exposure control for dose reduction was used. DATE OF EXAM: 12/15/2022 8:29 AM COMPARISON: CT brain C-spine 08/16/2022 CLINICAL INDICATION:Female, 67 years old with history of Neuro deficit, acute, stroke suspected, Neur o deficit, acute, stroke suspected TECHNIQUE: Brain: Multiple axial CT images of the brain were obtained without IV contrast. Coronal and sagittal reformats reviewed. FINDINGS: Brain: Extra-axial spaces: No abnormal extra-axial fluid collections. Ventricular system: Within normal limits Cerebral parenchyma: No acute intraparenchymal hemorrhage or mass effect. The high-white junction is well differentiated. Cerebellum: Unremarkable. Mass effect: No evidence of midline shift. Intracranial vasculature: Atherosclerotic calcifications of the intracranial vessels. Soft tissues: Normal. Calvarium/osseous structures: No depressed skull fracture. Paranasal sinuses and mastoid air cells: Minimal mucosal thickening of the right anterior ethmoid sin us. The mastoid air cells are clear. Visualized orbits: Orbital contents are intact. IMPRESSION: No acute intracranial process.
--- NOTE | 2022-12-15 08:59 | CT ---
EXAMINATION TYPE: CT angio head neck CT DLP: 516.4 mGycm, Automated exposure control for dose reduction was used. DATE OF EXAM: 12/15/2022 8:50 AM COMPARISON: CT brain of same date. CLINICAL INDICATION:Female, 67 years old with history of Neuro deficit, acute, stroke suspected; PHH, Neuro deficit, acute, stroke suspected TECHNIQUE: Axially acquired helical CT angiogram of the head and neck was obtained with contrast util izing 65 cc of Isovue-370 administered intravenously. Axial images are supplemented with 3D reconstru ctions which were post-processed at an independent workstation. NASCET criteria used. FINDINGS: CTA HEAD: No evidence of acute intracranial hemorrhage, mass effect, or midline shift. The ventricles, sulci, a nd cisterns are unremarkable. The visualized portions of the internal carotid arteries, middle cerebral arteries, anterior cerebral arteries, and posterior cerebral arteries are patent. The basilar and vertebral arteries are patent. CTA NECK: Right Carotid System: The common carotid artery and external carotid artery are patent. The carotid bifurcation demonstrate s no evidence of hemodynamically significant stenosis. The remaining portions of the internal carotid artery demonstrate normal size without significant narrowing. Left Carotid System: The common carotid artery and external carotid artery are patent. The carotid bifurcation demonstrate s no evidence of hemodynamically significant stenosis. The remaining portions of the internal carotid artery demonstrate normal size without significant narrowing. Vertebral arteries are patent without evidence hemodynamically significant stenosis. Left vertebral a rtery is dominant. There is a bovine aortic arch. The origins of the great vessels are patent. No evidence of hemodynami samara significant stenosis. Partial visualization of bilateral breast prosthesis. IMPRESSION: 1. No evidence of dissection of the cervical internal carotid arteries or vertebral arteries or any e vidence of significant stenosis at the carotid bifurcations. 2. No evidence of high-grade stenosis or intracranial aneurysm.
[2022-12-15 09:52] LABS: T4, Free (Free Thyroxine) 1.01 ng/dL (0.78-2.19)
--- NOTE | 2022-12-15 10:01 | ED ---
General Adult HPI - General Chief complaint: Medical Clearance Stated complaint: Confusion Time Seen by Provider: 12/15/22 06:28 Source: patient, RN notes reviewed Mode of arrival: ambulatory Limitations: no limitations - History of Present Illness Initial comments: This a 67-year-old female presents emergency Department with chief complaint of episode of confusion. Patient states other day she had approximately 10 minute episode in which she was confused and states that she had difficulty in thought processing. She states she had her TV rolling her hand but she states she did not know to do with her she states her was talking to her she did not processes. Patient states symptoms have resolved and she's been asymptomatic though she is concerned about her symptoms. Patient does have a large family history of heart issues including multiple family members with carotid issues. Patient states she has not helped her headache no blurred vision no focal weakness no chest pain or shortness breath. - Related Data Home Medications Medication Instructions Recorded Confirmed Cholecalciferol (Vitamin D3) 75 mcg PO HS 12/15/22 12/15/22 [Vitamin D3 (3000 Iu)] Cyanocobalamin (Vitamin B-12) 1,000 mcg PO HS 12/15/22 12/15/22 [Vitamin B-12] Magnesium Oxide [Magnesium] 500 mg PO HS 12/15/22 12/15/22 Rosuvastatin Calcium 5 mg PO MOWEFR 12/15/22 12/15/22 Allergies Allergy/AdvReac Type Severity Reaction Status Date / Time No Known Allergies Allergy Verified 12/15/22 07:49 Review of Systems ROS Statement: Those systems with pertinent positive or pertinent negative responses have been documented in the HPI. ROS Other: All systems not noted in ROS Statement are negative. Past Medical History Past Medical History: GERD/Reflux, Hyperlipidemia, Osteoarthritis (OA), Pneumonia Additional Past Medical History / Comment(s): hx covid 2020. History of Any Multi-Drug Resistant Organisms: None Reported Past Surgical History: Breast Surgery, Orthopedic Surgery Additional Past Surgical History / Comment(s): arthroscopic rt knee. Cosmetic facial surgery. Bilateral silicone breast implants 1992 & replaced in 2017. , Colonoscopy ., EGD 2019., rt achilles tendon repair Past Anesthesia/Blood Transfusion Reactions: No Reported Reaction Past Psychological History: No Psychological Hx Reported Smoking Status: Never smoker Past Alcohol Use History: Occasional Past Drug Use History: None Reported - Past Family History Mother Family Medical History: Hypertension, Myocardial Infarction (OR) Father Family Medical History: Coronary Artery Disease (CAD) Additional Family Medical History / Comment(s): Aortic aneurysm. Sister(s) Family Medical History: AFIB Additional Family Medical History / Comment(s): Dermatomyositis. General Exam Limitations: no limitations General appearance: alert, in no apparent distress Head exam: Present: atraumatic, normocephalic, normal inspection Eye exam: Present: normal appearance, PERRL, EOMI. Absent: scleral icterus, conjunctival injection, periorbital swelling ENT exam: Present: normal exam, normal oropharynx, mucous membranes moist Neck exam: Present: normal inspection, full ROM. Absent: tenderness, meningismus, lymphadenopathy Respiratory exam: Present: normal lung sounds bilaterally. Absent: respiratory distress, wheezes, rales, rhonchi, stridor Cardiovascular Exam: Present: regular rate, normal rhythm, normal heart sounds. Absent: systolic murmur, diastolic murmur, rubs, gallop, clicks Neurological exam: Present: alert, oriented X3, CN II-XII intact Course Vital Signs 12/15/22 12/15/22 06:39 07:31 Temperature 98.3 F Pulse Rate 69 67 Respiratory 18 18 Rate Blood Pressure 132/84 137/85 O2 Sat by Pulse 97 96 Oximetry EKG Findings - EKG Comments: EKG Findings:: EKG performed at 17:00 sinus rhythm rate of 63. 178 QRS 90 QT / QTC 406/414 Medical Decision Making - Medical Decision Making Was pt. sent in by a medical professional or institution (, PA, DATA PROGRAMMER, urgent care, hospital, or retirement...) When possible be specific @ -No Did you speak to anyone other than the patient for history (EMS, parent, family, police, friend...)? What history was obtained from this source @ -No Did you review nursing and triage notes (agree or disagree)? Why? @ -I reviewed and agree with nursing and triage notes Were old charts reviewed (outside hosp., previous admission, EMS record, old EKG, old radiological studies, urgent care reports/EKG's, retirement records)? Report findings @ -No old charts were reviewed Differential Diagnosis (chest pain, altered mental status, abdominal pain women, abdominal pain men, vaginal bleeding, weakness, fever, dyspnea, syncope, headache, dizziness, GI bleed, back pain, seizure, CVA, palpatations, mental health, musculoskeletal)? @ -Differential Altered Mental Status: Hypoglycemia, DKA, hypercapnia, ETOH, overdose, CO poisoning, trauma, myxedema coma, HTN encephalopathy, infection, encephalitis, psychosis, intercranial hemorrhage, hepatic encephalopathy, meningitis, CVA, this is not meant to be an all-inclusive listn EKG interpreted by me (3pts min.). @ -As above X-rays interpreted by me (1pt min.). @ -None done CT interpreted by me (1pt min.). @ -[CT of the brain without contrast shows no acute process, CT angios shows no acute process of the head or neck. U/S interpreted by me (1pt. min.). @ -None done What testing was considered but not performed or refused? (CT, X-rays, U/S, labs)? Why? @ -None What meds were considered but not given or refused? Why? @ -None Did you discuss the management of the patient with other professionals (professionals i.e. , PA, DATA PROGRAMMER, lab, RT, psych nurse, high school social science teacher, surveyor hydrographic, teacher, chairman president and chief executive officer, special education case manager)? Give summary @ -No Was smoking cessation discussed for >3mins.? @ -No Was critical care preformed (if so, how long)? @ -No Were there social determinants of health that impacted care today? How? (Homelessness, low income, unemployed, alcoholism, drug addiction, transportation, low edu. Level, literacy, decrease access to med. care, fci, rehab)? @ -No Was there de-escalation of care discussed even if they declined (Discuss DNR or withdrawal of care, Hospice)? DNR status @ -No What co-morbidities impacted this encounter? (DM, HTN, Smoking, COPD, CAD, Cancer, CVA, ARF, Chemo, Hep., AIDS, mental health diagnosis, sleep apnea, morbid obesity)? @ -Family cardiac Was patient admitted / discharged? Hospital course, mention meds given and route, prescriptions, significant lab abnormalities, going to OR and other pertinent info. @ -Discharged patient's workup included CT, labs unremarkable she is asymptomatic. Patient had transient episode of confusion. Patient will be disc harged in stable condition return parameters were discussed. Undiagnosed new problem with uncertain prognosis? @ -No Drug Therapy requiring intensive monitoring for toxicity (Heparin, Nitro, Insulin, Cardizem)? @ -No Were any procedures done? @ -No Diagnosis/symptom? @ -Transient confusion Acute, or Chronic, or Acute on Chronic? @ -[Acute Uncomplicated (without systemic symptoms) or Complicated (systemic symptoms)? @ -Uncomplicated Side effects of treatment? @ -No Exacerbation, Progression, or Severe Exacerbation? @ -No Poses a threat to life or bodily function? How? (Chest pain, USA, OR, pneumonia, PE, COPD, DKA, ARF, appy, cholecystitis, CVA, Diverticulitis, Homicidal, Suicidal, threat to staff... and all critical care pts) @ -No - Lab Data Result diagrams: 12/15/22 06:52 12/15/22 06:52 Lab Results 12/15/22 12/15/22 12/15/22 Range/Units 06:52 06:52 06:52 WBC 4.3 (3.8-10.6) k/uL RBC 4.84 (3.80-5.40) m/uL Hgb 15.2 (11.4-16.0) gm/dL Hct 43.9 (34.0-46.0) % MCV 90.8 (80.0-100.0) fL MCH 31.4 (25.0-35.0) pg MCHC 34.5 (31.0-37.0) g/dL RDW 13.3 (11.5-15.5) % Plt Count 181 (150-450) k/uL MPV 9.0 Neutrophils % 51 % Lymphocytes % 30 % Monocytes % 9 % Eosinophils % 4 % Basophils % 3 % Neutrophils # 2.2 (1.3-7.7) k/uL Lymphocytes # 1.3 (1.0-4.8) k/uL Monocytes # 0.4 (0-1.0) k/uL Eosinophils # 0.2 (0-0.7) k/uL Basophils # 0.1 (0-0.2) k/uL PT 9.8 (9.0-12.0) sec INR 0.9 (<1.2) APTT 24.4 (22.0-30.0) sec Sodium 140 (137-145) mmol/L Potassium 4.6 (3.5-5.1) mmol/L Chloride 105 (98-107) mmol/L Carbon Dioxide 27 (22-30) mmol/L Anion Gap 8 mmol/L BUN 23 H (7-17) mg/dL Creatinine 0.74 (0.52-1.04) mg/dL Est GFR (CKD-EPI)AfAm >90 (>60 ml/min/1.73 sqM) Est GFR (CKD-EPI)NonAf 86 (>60 ml/min/1.73 sqM) Glucose 82 (74-99) mg/dL Calcium 9.7 (8.4-10.2) mg/dL Magnesium 2.1 (1.6-2.3) mg/dL Total Bilirubin 0.7 (0.2-1.3) mg/dL AST 31 (14-36) U/L ALT 31 (4-34) U/L Alkaline Phosphatase 81 (38-126) U/L Creatine Kinase (30-135) U/L Troponin I (0.000-0.034) ng/mL Total Protein 7.9 (6.3-8.2) g/dL Albumin 4.7 (3.5-5.0) g/dL TSH (0.465-4.680) mIU/L Free T4 (0.78-2.19) ng/dL 12/15/22 12/15/22 12/15/22 Range/Units 06:52 06:52 06:52 WBC (3.8-10.6) k/uL RBC (3.80-5.40) m/uL Hgb (11.4-16.0) gm/dL Hct (34.0-46.0) % MCV (80.0-100.0) fL MCH (25.0-35.0) pg MCHC (31.0-37.0) g/dL RDW (11.5-15.5) % Plt Count (150-450) k/uL MPV Neutrophils % % Lymphocytes % % Monocytes % % Eosinophils % % Basophils % % Neutrophils # (1.3-7.7) k/uL Lymphocytes # (1.0-4.8) k/uL Monocytes # (0-1.0) k/uL Eosinophils # (0-0.7) k/uL Basophils # (0-0.2) k/uL PT (9.0-12.0) sec INR (<1.2) APTT (22.0-30.0) sec Sodium (137-145) mmol/L Potassium (3.5-5.1) mmol/L Chloride (98-107) mmol/L Carbon Dioxide (22-30) mmol/L Anion Gap mmol/L BUN (7-17) mg/dL Creatinine (0.52-1.04) mg/dL Est GFR (CKD-EPI)AfAm (>60 ml/min/1.73 sqM) Est GFR (CKD-EPI)NonAf (>60 ml/min/1.73 sqM) Glucose (74-99) mg/dL Calcium (8.4-10.2) mg/dL Magnesium (1.6-2.3) mg/dL Total Bilirubin (0.2-1.3) mg/dL AST (14-36) U/L ALT (4-34) U/L Alkaline Phosphatase (38-126) U/L Creatine Kinase 85 (30-135) U/L Troponin I <0.012 (0.000-0.034) ng/mL Total Protein (6.3-8.2) g/dL Albumin (3.5-5.0) g/dL TSH 5.520 H (0.465-4.680) mIU/L Free T4 1.01 (0.78-2.19) ng/dL Disposition Clinical Impression: Transient confusion Disposition: HOME SELF-CARE Condition: Stable Additional Instructions: Please return to the Emergency Department if symptoms worsen or any other concerns. Is patient prescribed a controlled substance at d/c from ED?: No Referrals: Quinton Jay DO [Primary Care Provider] - 1-2 days Time of Disposition: 10:01
[2022-12-15 10:51] VITALS: BP 132/78; PULSE 68
== END 2022-12-15 10:51 | disposition home or self-care (01) ==
LOC: EC 06:26
DX: R40.4 Transient alteration of awareness (principal); E78.5 Hyperlipidemia, unspecified; M19.90 Unspecified osteoarthritis, unspecified site; Z79.1 Long term (current) use of non-steroidal anti-inflammatories (NSAID); Z79.899 Other long term (current) drug therapy
CPT/HCPCS: 36415; 93005; 84439; 80053; 84443; 82550; 83735; 84484; 85025; 85610; 85730; 70496; 70450; 70498; 99283; Q9967